=== PATIENT | female | born 1990 | race Caucasian/White ===

== ENCOUNTER 2024-11-16 14:03 | Day surgery (SDC) | payer MEDICAID, SELFPAY ==
[2024-11-16] VITALS (13 sets, daily range): BP systolic 103–144; BP diastolic 65–102; BMI 33.3
[2024-11-16 01:54] LABS: Hematocrit 36.5 % (37.0-47.0); Hemoglobin 12.4 g/dL (12.0-16.0); Mean Corp Hgb Conc. 34.0 g/dL (33.0-37.0); Mean Corpuscular Volume 89.0 fL (81.0-99.0); Nucleated Red Blood Cells % 0 %; Platelet Count 241 10^3/uL (130-400); Red Cell Dist. Width 13.2 % (11.5-14.5)
[2024-11-16 02:22] LABS: ALT (SGPT) 28 U/L (0-35); AST (SGOT) 23 U/L (14-36); Albumin 4.1 g/dl (3.5-5.0); Alkaline Phosphatase 78 U/L (38-126); Blood Urea Nitrogen 13 mg/dl (7-17); Calcium 8.9 mg/dl (8.4-10.2); Carbon Dioxide 24 mmol/L (22-30); Chloride 105 mmol/L (98-107); Glucose 152 mg/dl (70-99); Potassium 4.5 mmol/L (3.5-5.1); Sodium 136 mmol/L (135-145); Total Protein 6.9 g/dl (6.3-8.2); eGFR > 60.00
[2024-11-16 02:31] LABS: Beta HCG Quantitative 3336.20 mIU/ml
--- NOTE | 2024-11-16 04:24 | ED.GENMED ---
History of Present Illness
<Romelia Keene PA-C - Last Filed: 11/16/24 12:37>
General
Chief Complaint: Flank Pain
Source: patient
Exam Limitations: none
Time Seen by Provider: 11/16/24 04:22
Nursing documentation reviewed up to this point in time: agreed with
History of Present Illness
History of Present Illness:
Note:
CHIEF COMPLAINT(S)
Pelvic pain and spotting in early .
HISTORY OF PRESENT ILLNESS
The patient is a 32-year-old female who recently discovered she is . She comes in with pelvic pain and bleeding for the past few days. She presented with complaints of pelvic pain and spotting that started after confirming her
through blood work yesterday. The pain began on Thursday evening and was initially diffuse, involving the chest and ribs down to the abdomen. Over time, it localized more specifically to the left lower quadrant near the hip and pelvis. The patient
described the sensation as similar to a bruise or cramp on the left side. She also experienced nausea but attributed it to the journey to the facility, not genuine vomiting. The pain is exacerbated by prolonged sitting or lying in one position and
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 The patient reports a history of previous losses, with one occurring around four months, which was traumatic, leading to distrust in past medical
advice. 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
PAST MEDICAL HISTORY
- History of Lyme disease, treated with lumbar puncture complications.
- Previous losses, with significant psychological distress associated with the experiences.
- Heart issues from , further emphasized since the onset of the COVID pandemic.
SOCIAL DETERMINANTS AFFECTING HEALTH
The patient reports significant psychological distress related to past experiences and uncertainties around healthcare decisions.
PHYSICAL EXAM
- Nursing notes reviewed and vital signs reviewed.
General: Patient is well appearing and in no acute distress; non-toxic
Skin: Warm and dry, no rashes or lesions
Head: Normocephalic, atraumatic
Eyes: Sclera non-icteric. EOMs intact.
Cardiac: Regular rate and rhythm, no murmurs
Peripheral Vascular: No lower extremity swelling or edema
Pulm: Normal respiratory effort, no wheezes, rales,, or rhonchi
Abdomen: Left sided adnexal tenderness noted no cva tenderness
Neuro: CN II-XII intact, no focal neurologic deficits.
Psychiatric: Appropriate mood and affect.
PLAN
- Conduct an ultrasound to confirm intrauterine and rule out ectopic .
- Perform a comprehensive abdominal ultrasound to evaluate the kidneys and other abdominal organs.
- Obtain a urine sample following the ultrasound to assist in evaluating any underlying issues.
DIFFERENTIAL DIAGNOSIS
The Differential Diagnosis includes, in no particular order, and is not limited to:
1. Intrauterine with associated pain.
2. Ectopic .
3. Urinary tract infection.
4. Renal calculi (kidney stones).
5. Musculoskeletal strain.
6. Ovarian cyst.
7. Appendicitis.
8. Pelvic inflammatory disease.
9. Gastrointestinal issues such as bowel obstruction.
10. Psychological stress-related somatic symptoms.
MDM/DISPOSITION
The patient is a 32-year-old female who recently discovered she is . She comes in with pelvic pain and bleeding for the past few days. She presented with complaints of pelvic pain and spotting that started after confirming her
through blood work yesterday.She was found to have a left sided ectopic . She is A positive. Hemoglobin stable. Vitals stable. There is some concern from [facility] regarding heterotrophic . I spoke with Dr. Chandra our OBGYN
environmental science technician. Concerning with starting methotrexate regarding potential hetetroptophic
Case signed out to Dr. Platt at 8:00 am pending official ultrasound report
Past History
<Romelia Keene PA-C - Last Filed: 11/16/24 12:37>
Past History
ED Past Medical History: Valvular disease
ED Past Surgical History: None
Social History
Tobacco: Non-smoker
Review of Systems
<Romelia Keene PA-C - Last Filed: 11/16/24 12:37>
Review of Systems
All Other Systems: ROS reviewed and negative except as documented in HPI and ROS
Phy Exam
<Romelia Keene PA-C - Last Filed: 11/16/24 12:37>
Physical Exam
Physical Exam:
see hpi
Course
<Romelia Keene PA-C - Last Filed: 11/16/24 12:37>
Orders/Labs/Results
Orders:
Orders
11/16/24
Electrocardiogram (*1) Stat
Reason for Study: Chest Pain
Comment: DONE
11/16/24 01:42
Complete Blood Count/With Diff Urgent
Comprehensive Metabolic Panel Urgent
HCG, Beta Quantitative [Beta HCG Quantitative] Urgent
Is this a screen?: No
11/16/24 04:57
US Abdomen Limited Urgent
Reason For Exam: left flank pain
US W Transvaginal Urgent
Reason For Exam: pelvic pain, bleeding
11/16/24 06:28
Urinalysis Urgent
Date Specimen was Collected: 11/16/24
Time Specimen was Collected: 01:34
Urine Microscopic Urgent
Date Specimen was Collected: 11/16/24
Time Specimen was Collected: 01:34
11/16/24 10:26
Dexamethasone Sod Phosphate [Decadron] 20 mg .ROUTE .STK-MED ONE
Fentanyl Citrate/Pf [Sublimaze] 100 mcg .ROUTE .STK-MED ONE
Lidocaine HCl/Pf [Xylocaine-Mpf 1% Vial] 50 mg .ROUTE .STK-MED ONE
Midazolam HCl [Versed] 2 mg .ROUTE .STK-MED ONE
Ondansetron Injectable [Zofran] 4 mg .ROUTE .STK-MED ONE
Propofol [Diprivan] 20 ml .ROUTE .STK-MED
11/16/24 10:51
Bupivacaine Pf 0.5% [Sensorcaine 0.5% Single Dose] 30 ml .ROUTE .STK-MED ONE
11/16/24 11:01
Consult Cardiology [CARDIOLOGY CONSULT] Stat
Consulting Provider: Luis Antonio Erickson
Was physician already notified: Yes
11/16/24 11:27
EKG [Electrocardiogram (*1)] Routine
Reason for Study: PreOp
11/16/24 11:28
Echo 2D MMode Color/Doppler Urgent
Reason for Study: hx ASD
Comment: pre-op
11/16/24 12:14
Bupivacaine Pf 0.5% [Sensorcaine 0.5% Single Dose] 30 ml .ROUTE .STK-MED ONE
Abnormal Lab Results
11/16/24 11/16/24
01:42 06:28
WBC 13.5 H 10^3/uL
(4.8-10.8)
RBC 4.10 L 10^6/uL
(4.20-5.40)
Hct 36.5 L %
(37.0-47.0)
MPV 13.4 H fL
(7.4-10.4)
Abs Immat Gran (auto) 0.1 H 10^3/uL
(0-0.05)
Absolute Neuts (auto) 9.7 H 10^3/uL
(1.4-6.5)
Absolute Monos (auto) 0.7 H 10^3/uL
(0.1-0.6)
Glucose 152 H mg/dl
(70-99)
Urine Occult Blood 4+ A
(Negative)
Ur Leukocyte Esterase 2+ A
(Negative)
Urine WBC 40-50 A /HPF
(0-5)
Urine Bacteria Moderate A
(Negative)
Urine Albumin 2+ A
(Neg - Trace)
11/16/24 01:42
11/16/24 01:42
Vital Signs
Initial and Last Documented VS:
Initial Vital Signs
Temp Pulse Resp BP Pulse Ox
97.5 F 62 20 144/102 100
11/16/24 01:29 11/16/24 01:29 11/16/24 01:29 11/16/24 01:29 11/16/24 01:29
Last Documented Vital Signs
Temp Pulse Resp BP Pulse Ox
98.7 F 78 16 119/77 96
11/16/24 11:26 11/16/24 11:26 11/16/24 11:26 11/16/24 11:26 11/16/24 11:26
<Clement Platt, DO - Last Filed: 11/16/24 10:22>
Orders/Labs/Results
Orders:
Orders
11/16/24
Electrocardiogram (*1) Stat
Reason for Study: Chest Pain
Comment: DONE
11/16/24 01:42
Complete Blood Count/With Diff Urgent
Comprehensive Metabolic Panel Urgent
HCG, Beta Quantitative [Beta HCG Quantitative] Urgent
Is this a screen?: No
11/16/24 04:57
US Abdomen Limited Urgent
Reason For Exam: left flank pain
US W Transvaginal Urgent
Reason For Exam: pelvic pain, bleeding
11/16/24 06:28
Urinalysis Urgent
Date Specimen was Collected: 11/16/24
Time Specimen was Collected: 01:34
Urine Microscopic Urgent
Date Specimen was Collected: 11/16/24
Time Specimen was Collected: 01:34
11/16/24 10:26
Dexamethasone Sod Phosphate [Decadron] 20 mg .ROUTE .STK-MED ONE
Fentanyl Citrate/Pf [Sublimaze] 100 mcg .ROUTE .STK-MED ONE
Lidocaine HCl/Pf [Xylocaine-Mpf 1% Vial] 50 mg .ROUTE .STK-MED ONE
Midazolam HCl [Versed] 2 mg .ROUTE .STK-MED ONE
Ondansetron Injectable [Zofran] 4 mg .ROUTE .STK-MED ONE
Propofol [Diprivan] 20 ml .ROUTE .STK-MED
11/16/24 10:51
Bupivacaine Pf 0.5% [Sensorcaine 0.5% Single Dose] 30 ml .ROUTE .STK-MED ONE
11/16/24 11:01
Consult Cardiology [CARDIOLOGY CONSULT] Stat
Consulting Provider: Luis Antonio Erickson
Was physician already notified: Yes
11/16/24 11:27
EKG [Electrocardiogram (*1)] Routine
Reason for Study: PreOp
11/16/24 11:28
Echo 2D MMode Color/Doppler Urgent
Reason for Study: hx ASD
Comment: pre-op
11/16/24 12:14
Bupivacaine Pf 0.5% [Sensorcaine 0.5% Single Dose] 30 ml .ROUTE .STK-MED ONE
Abnormal Lab Results
11/16/24 11/16/24
01:42 06:28
WBC 13.5 H 10^3/uL
(4.8-10.8)
RBC 4.10 L 10^6/uL
(4.20-5.40)
Hct 36.5 L %
(37.0-47.0)
MPV 13.4 H fL
(7.4-10.4)
Abs Immat Gran (auto) 0.1 H 10^3/uL
(0-0.05)
Absolute Neuts (auto) 9.7 H 10^3/uL
(1.4-6.5)
Absolute Monos (auto) 0.7 H 10^3/uL
(0.1-0.6)
Glucose 152 H mg/dl
(70-99)
Urine Occult Blood 4+ A
(Negative)
Ur Leukocyte Esterase 2+ A
(Negative)
Urine WBC 40-50 A /HPF
(0-5)
Urine Bacteria Moderate A
(Negative)
Urine Albumin 2+ A
(Neg - Trace)
11/16/24 01:42
11/16/24 01:42
Vital Signs
Initial and Last Documented VS:
Initial Vital Signs
Temp Pulse Resp BP Pulse Ox
97.5 F 62 20 144/102 100
11/16/24 01:29 11/16/24 01:29 11/16/24 01:29 11/16/24 01:29 11/16/24 01:29
Last Documented Vital Signs
Temp Pulse Resp BP Pulse Ox
98.7 F 78 16 119/77 96
11/16/24 11:26 11/16/24 11:26 11/16/24 11:26 11/16/24 11:26 11/16/24 11:26
<Romelia Keene PA-C - Last Filed: 11/16/24 12:37>
*Pulse Oximetry
SaO2: 100
Oxygen Mode of Delivery: Room air
Patient hypoxic: no
*Critical Care Note
Total Time (30-74mins, 75-104mins- exclusive of procedures): Not Applicable
<Clement Platt DO - Last Filed: 11/16/24 10:22>
Update Note
Update Note:
Patient evaluated by Dr. Chandra in the Emergency Department. There is concern for measuring up to 4.5 cm. Patient now more strongly considering being taken to the OR.
ED Attending Note
<Romelia Keene PA-C - Last Filed: 11/16/24 12:37>
-
Portions of this chart may have been created with voice recognition software.� Occasional wrong word or��sound alike� substitutions may have occurred due to the inherent limitations of voice recognition software.
Discharge Plan
Departure
Patient Disposition: OR
Date of Disposition: 11/16/24
Time of Disposition: 10:22
Presentation/result/management discussed w/ accepting MD/DO: dr chandra
Discharge Problem:
Ectopic
Prescriptions:
No Action
aspirin 81 mg Tablet
81 mg PO DAILY PRN (Reason: headache)
Referrals:
NONE,* [Active, Internal Medicine]
Interventions
Interventions:
*Risk Screen - Suicide Last Done: 11/16/24 01:29
*General Assessment Last Done: 11/16/24 03:26
*Neglect/Abuse Screening Last Done: 11/16/24 01:29
*ED- Fall Risk Assessment Last Done: 11/16/24 03:26
*ED COVID-19 Vaccine History Last Done: 11/16/24 03:26
*Nursing Disposition Last Done: 11/16/24 10:49
AV-Drmvcv-Gayzqstwqj Assessment Last Done: 11/16/24 07:03
ED-Female Genitourinary Assessment Last Done: 11/16/24 07:03
Discharge Date and Time
Discharge Date/Time: 11/16/24 10:50
Print Language: SWISS
[2024-11-16 06:56] LABS: Urine Character Clear (Clear)
[2024-11-16 07:02] LABS: Urine Squamous Cell >30 /LPF (Few)
[2024-11-16 07:03] LABS: Urine Red Blood Cell 0-2 /HPF (0-2); Urine White Cell 40-50 /HPF (0-5)
--- NOTE | 2024-11-16 10:14 | HPS.HSE ---
Family Physician
-
Family Physician: * NONE
Chief Complaint
-
abdominal pain in
History of Present Illness
HPI: Patient is a yo [id number] who presented to the ED with complaints of LLQ pain. She states the pain happened over the weekend and went away and then happened again last night. She says her LMP was 10/09 and she has regular monthly periods. She was
also having spotting and was worried she was having a miscarriage. She reports her pain has improved now. She has a little bit of nausea which she contributes to her anxiety related to being in the hospital. She denies dizziness or lightheadedness.
Pelvic US showed a left ectopic measuring 4.2x4.5cm.
PMHx: VSD
Meds: bASA prn for headaches
Surghx: procedure on her heart as a child (pt unsure)
All: amoxicillin
Socialhx: denies tobacco, etoh or illicit drug use
Famhx: dad's side with cardiac issues- pt has very limited knowledge of her family history
OBHx: SABx1, TABx1
Gynhx: denies hx of abnormal Pap smears or STDs
Medical History
Past Medical History
Past Medical History: Reports Other
Additional Past Medical History:
VSD
Past Surgical History: Reports Other
Social History
Tobacco: Non-smoker
Alcohol: None
Drug: None
Family History
Family History: CAD
Allergies / Home Medications
Allergies reflects when Allergies were last updated in [facility].
Home Medications with original date entered in [facility]
Allergy/Medication List:
Meds: bASA prn
All: amoxicillin
Review of Systems
-
A 12 point ROS was completed and negative except as noted: Yes
Physical Exam
Vital Signs
Vital Signs
Temp Pulse Resp BP Pulse Ox
97.5 F 104 22 121/84 97
11/16/24 01:29 11/16/24 09:17 11/16/24 09:17 11/16/24 09:00 11/16/24 09:00
Physical Exam
General: Well Developed and Well Nourished
HEENT: NormoCephalic
Respiratory: Non Labored Respirations
Cardiac: Regular Rhythm
GI: Soft, Non Distended and Other (mild tenderness of LLQ without rebound rigidity or guarding)
Skin: Warm and Dry
Neuro: Awake and Alert
Psych: Calm
Laboratory Results
-
11/16/24 01:42
11/16/24 01:42
Laboratory Results
Total Bilirubin 0.6 mg/dl (0.2-1.3) 11/16/24 01:42
AST 23 U/L (14-36) 11/16/24 01:42
ALT 28 U/L (0-35) 11/16/24 01:42
Alkaline Phosphatase 78 U/L (38-126) 11/16/24 01:42
Impression/Plan
-
IMPRESSION:
Patient is a 34yo with a left ectopic
PLAN:
- Pelvic US with a left ectopic measuring 4.2x4.5cm. Findings reviewed with patient. A relative contraindication to methotrexate is an ectopic measuring >3-4cm so the recommendation is to proceed with left salpingectomy. When I initially
spoke with the patient, she was very hesitant to proceed with surgery. She stated that her parents told her she could not undergo anesthesia or she would . She had a procedure when she was 4-3yrs old and she does not know the reaction she had to
anesthesia. She does not know if she has any family history of reactions to anesthesia. She did not want to undergo surgery and said she would rather take the risk of dying than proceeding with surgery. She does not have a lot of support at home and
was also worried about her pets if something were to happen to her. A very extensive conversation was had regarding the risks of not proceeding with the surgery including the ectopic rupturing which could lead to emergency surgery, need for a blood
transfusion and even . Discussed that methotrexate is less effective when the ectopic is >4cm. After multiple discussions regarding the risks and benefits of surgery and methotrexate, patient ultimately agreed that surgery with a laparoscopic
left salpingectomy was the best decision. She spoke with her father who will help arrange transportation for her to get home.
- Risks, benefits and alternatives to diagnostic laparoscopy, left salpingectomy and possible open procedure were reviewed including bleeding, infection, damage to surrounding structures, and need for further operations or hospitalizations were
reviewed. Consent was signed. She was consented for a blood transfusion in case of emergency.
- Postop expectations, restrictions and recovery reviewed. She is aware she will need to follow up in the office for a postop appointment
- OR notified. Plan to proceed with diagnostic laparoscopy, left salpingectomy, and possible open procedure
--- NOTE | 2024-11-16 11:02 | W.PN.UPDATE ---
Update Note
Progress Note Update
Patient reported to anesthesia a questionable cardiac history with a recent diagnosis on EKG but is not sure what it was. Anesthesia requesting cardiac clearance prior to proceeding. Stat Cardiology consult placed. Patient moved to [facility] until
cleared.
--- NOTE | 2024-11-16 13:28 | CON.CAR ---
Consultation
Consultation Request
Date/Time Consultation Requested: 11/16/24
Date/Time Consultation Performed: 11/16/24
Requesting Provider: Dr. Chandra
Performing Provider: Dr. Erickson
Reason for Consultation: preop evaluation
Medical History
-
Chief Complaint: abd pain
History of Present Illness:
34-year-old female presented to emergency department for left lower quadrant pain found to have an ectopic requiring surgical intervention with Dr. Diaz today. We are asked to evaluate her as she was discussing her history with
anesthesia preoperatively and reported a heart defect since childhood. She reports, she was told she had a hole somewhere in her heart but it was either too small or her in an area that was unsafe to be fixed. She then reports an abnormality on
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 Echocardiograms have been repeatedly ordered by her primary care physician but she never followed up. Otherwise, she is not doing any set exercise but is quite
active. 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 She had anesthesia when she was 3 for unclear reasons without any history. No family history of sudden cardiac
. No history of cardiac surgery. She is not a smoker, very rarely drinks and does not use any illicit substances.
Past Medical History
Past Medical History: Other (As above)
Social History
Tobacco: Non-Smoker
Alcohol: Occasional
Drug: None
Employment: Employed
Family History
Family History: Reviewed & Not Pertinent
Allergies / Home Medications
Allergy/AdvReac Type Severity Reaction Status Date / Time
amoxicillin (Amoxicillin) AdvReac Vomiting Verified 11/16/24 10:49
�Medication �Instructions �Recorded �Confirmed �Type
aspirin 81 mg tablet 81 mg PO DAILY PRN headache 11/16/24 11/16/24 History
Review of Systems
-
All other systems: Negative unless noted
Physical Exam
Vital Signs
Temp Pulse Resp BP Pulse Ox
98.7 F 78 16 119/77 96
11/16/24 11:26 11/16/24 11:26 11/16/24 11:26 11/16/24 11:26 11/16/24 11:26
Lab Results
11/16/24 01:42
11/16/24 01:42
Physical Exam
General: Well Developed, Well Nourished, No Apparent Distress, Comfortable and Respiratory Distress
Respiratory: Clear; Negative Wheezes, Crackles or Rhonchi
Cardiac: S1/S2, Regular Rhythm and Murmur (1 out of 6 systolic murmur in all areas); Negative Rub or Peripheral Edema
Genito-urinary: No Costovertebral Tender
Neuro: AO x 3
Impression / Plan
-
34-year-old female with ectopic requiring surgical intervention. We are asked to comment on possible congenital heart defect.
Preoperative restratification: At the request of anesthesia urgent echocardiogram was performed and showed small perimembranous VSD with normal biventricular size and systolic function. EKG shows incomplete right bundle branch block.
No further cardiac testing required prior to surgery.
She has adequate functional capacity.
She is average risk for the procedure.
Small perimembranous VSD: No cyanosis. No functional limitation.
Monitor over time with serial echocardiogram.
No indication for antibiotic prophylaxis at this time.
incomplete Right bundle branch block: Asymptomatic, NTD.
Data Reviewed
-
EKG: Tracing Personally Visualized and interpreted (Normal sinus rhythm with incomplete right bundle branch block pattern. LVH no significant change from 2014.)
Medical Tests (Nuc Med, Echo etc): Image Personally Visualized and interpreted (Echo, normal biventricular size and systolic function small perimembranous VSD.)
Labs: Discussed with Physician (Recommendations discussed with Dr. Chandra.)
--- NOTE | 2024-11-16 20:51 | OR.RPT ---
Operative Report
Operative Report
Date of procedure: 11/16/2024
Preop diagnosis: Left ectopic
Postop diagnosis: same, hemoperitoneum
Procedure: Diagnostic laparoscopy, left salpingectomy
Surgeon: Corazon
Submarine Element Coordinator: Lakshmi
Anesthesia: General, Dr. Morales
EBL: 5cc, 50cc of hemoperitoneum
Findings:
- Left ectopic partially ruptured
- 50cc of hemoperitoneum and clot
- left fallopian tube and ectopic were adherent to the omentum and anterior abdominal wall secondary to clot. Easily dissected off with blunt dissection
Complications: none
Pathology: left fallopian tube
Indication: Patient is a 34yo who presented to the Emergency Department with complaints of left lower quadrant pain and vaginal bleeding. She was reported to be about 5 weeks . Her hcg was 3336. Pelvic ultrasound showed left ectopic
measuring 4.2x4.5cm. She was not a candidate for methotrexate due to size. She was initially hesitant to proceed with surgery but after long discussion, she agreed to proceed with diagnostic laparoscopy and left salpingectomy. She reported
a vague history of a VSD and another heart condition but was not able to provide any further information. Cardiology was consulted per anesthesia request and she had an echo. She received Cardiac clearance prior to proceeding. Consents were signed
and patient was consented for a blood transfusion as well.
Procedure: Patient was taken to the operating room and placed under general anesthesia. She was placed in the dorsal lithotomy position with Jeison type stirrups. She was prepped and draped in the normal sterile fashion. The vagina was prepped with
Betadine and the abdomen with ChloraPrep. The bladder was drained with a straight catheter yielding 5cc of clear urine. Roberson retractors were placed in the posterior and anterior aspects of the vagina revealing good visualization of the cervix. The
cervix was grasped with a single tooth tenaculum. The uterus was sounded to 9cm. The cervix was sequentially dilated. A Humi manipulator was introduced to the fundus. The tenaculum was removed from the cervix.
Gloves were changed and attention was turned to the abdomen. A 5mm incision was made inferior to the umbilicus. Veress needle was introduced and intraabdominal pressure was <5mmHg. The abdomen was insufflated to 15mmHg. A 5mm Optiview trocar was
inserted under direct visualization. Abdominal survey revealed left ectopic partially ruptured that was adherent to the omentum and anterior abdominal wall with clot. Two 5mm accessory Optiview trocar were placed under direct visualization
in the right and left lower quadrants. Clots were evacuated and the omentum was bluntly dissected off of the ectopic and left fallopian tube/ovary. The left ectopic was identified. The left fallopian was followed out to the fimbriated end.
The fallopian tube was removed in a stepwise fashion along the mesosalpinx with a LigaSure device. Hemostasis was noted. The 5mm umbilical port was removed and the skin incision was extended. An 11mm Optiview trocar was introduced under direct
visualization. An EndoCatch bag was introduced through the 11mm port and the fallopian tube with ectopic was removed and sent to pathology for evaluation. The salpingectomy site was examined and was hemostatic. The abdomen was irrigated
and suctioned and clots/hemoperitoneum were removed. The 11mm trocar was removed and the fascia was closed with 0 Vicryl using a Italo Hanh. The fascia was palpated and was intact. A survey of the abdomen was performed and hemostasis was noted.
The abdomen was desufflated and all trocars were removed. Port sites were closed using single interrupted stitches with 4-0 Monocryl. Incisions were covered with skin glue. The uterine manipulator was removed. Counts were correct. The patient was
awakened from anesthesia and transferred to PACU in stable condition.
== END 2024-11-16 18:40 | disposition home or self-care (01) ==
LOC: PACU 14:03
PROVIDERS: ATTENDING PHYSICIAN Student in an Organized Health Care Education/Training Program; CONSULT PHYSICIAN Internal Medicine Cardiovascular Disease; EMERGENCY PHYSICIAN Emergency Medicine; FAMILY PHYSICIAN Family Medicine
DX: O00.102 Left tubal pregnancy without intrauterine pregnancy (principal); K66.1 Hemoperitoneum; Q21.0 Ventricular septal defect
CPT/HCPCS: 59151; 76705; 76801; 76817; 80053; 81003; 81015; 84702; 85025; 86850; 86900; 86901; 88305; 93005; 93306; 99285